=== PATIENT | male | born 1990 | race Caucasian/White ===

== ENCOUNTER → 2019-08-24 | Outpatient (CLI) | payer OTHER | LOC: COL.RAD 11:21 | DX: S39.91XA Unspecified injury of abdomen, initial encounter (principal); R10.30 Lower abdominal pain, unspecified; M54.9 Dorsalgia, unspecified; W20.8XXA Other cause of strike by thrown, projected or falling object, initial encounter; Y92.89 Other specified places as the place of occurrence of the external cause; Y99.0 Civilian activity done for income or pay | CPT/HCPCS: Q9967 ==